=== PATIENT | male | born 1950 | race Caucasian/White ===

== ENCOUNTER → 2016-12-19 | Outpatient (CLI) | payer OTHER | LOC: FIMAGING 16:00 | PROVIDERS: ATTEND Family Medicine Sports Medicine | DX: M50.31 Other cervical disc degeneration, high cervical region (principal); M41.86 Other forms of scoliosis, lumbar region; M43.06 Spondylolysis, lumbar region ==

== ENCOUNTER → 2017-07-08 | Outpatient (CLI) | payer OTHER | LOC: FIMAGING 15:19 | PROVIDERS: ATTEND Family Medicine Sports Medicine | DX: R07.89 Other chest pain (principal) ==